=== PATIENT | female | born 1940 | race Caucasian/White ===

== ENCOUNTER → 2016-06-05 | Outpatient (CLI) | payer MEDICARE, MEDICAID | LOC: RAD 08:22 | PROVIDERS: ATTEND Internal Medicine | DX: C54.1 Malignant neoplasm of endometrium (principal); N13.30 Unspecified hydronephrosis | CPT/HCPCS: 71260; 74177; 82565 ==

== ENCOUNTER → 2016-07-04 | Outpatient (CLI) | payer MEDICARE, MEDICAID | LOC: RAD 09:06 | PROVIDERS: ATTEND Specialist | DX: C54.1 Malignant neoplasm of endometrium (principal); C50.419 Malignant neoplasm of upper-outer quadrant of unspecified female breast | CPT/HCPCS: 72157; A9577 ==

== ENCOUNTER → 2016-08-07 | Outpatient (CLI) | payer MEDICARE, MEDICAID | LOC: WI 09:43 | PROVIDERS: ATTEND Specialist | DX: C50.412 Malignant neoplasm of upper-outer quadrant of left female breast (principal) | CPT/HCPCS: G0279; G0204; 77062; 77066 ==

== ENCOUNTER → 2016-09-30 | Outpatient (CLI) | payer MEDICARE, MEDICAID | LOC: RAD 10:07 | PROVIDERS: ATTEND Specialist | DX: C54.1 Malignant neoplasm of endometrium (principal) | CPT/HCPCS: 74177; 82565 ==

== ENCOUNTER → 2016-10-16 | Outpatient (CLI) | payer MEDICARE, MEDICAID ==
--- NOTE | 2016-10-16 15:59 | RADIOLOGY REPORT (SQ) ---
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 PET-CT dated 01/20/2017. RADIONUCLIDE AND DOSE: 15.0 mCi F18 FDG The route of agent administration: Intravenous FASTING BLOOD SUGAR: 99 mg/dl CONTRAST TYPE AND DOSE: No CT contrast given. TECHNIQUE: Blood glucose level was verified. Above dose of FDG was injected intravenously. 2-D seg mented attenuation correction images were obtained from the base of the skull to the midthighs. Nonc ontrast CT images were obtained for attenuation correction and fusion with emission images. CT image s were performed without oral or intravenous contrast and are not sensitive for parenchymal lesions. A series of overlapping emission PET images were obtained. Images reviewed and manipulated at [facility] work station by the radiologist. Images stored on PACS. LIMITATIONS: None. FINDINGS: HEAD AND NECK: 5 mm nodule in the posterior inferior left parotid gland. Mean SUV value 2 .3. CHEST: Nodule at the right lung base adjacent to the diaphragm, seen on recent CT, has increased acti vity with mean SUV 4.5. No noticeable activity in the nodule in the left lung base. There is a mini mal nodule posterior to the left side of the upper sternum, possibly a peripheral lung nodule versus an intramammary lymph node. This measures 6 mm with mean SUV value 2.8. On the CT scan there are mu ltiple small lung nodules throughout both lungs, generally measuring 5 mm or less, which were not pre sent on the prior chest CT in May 2016. These do not demonstrate measurable activity, likely due to the small size. ABDOMEN AND PELVIS: There are multiple areas of abnormal activity in the liver. These areas are not clearly apparent on the noncontrast CT scan. These have mean SUV values ranging from 5.8 to 9.8. Se veral nodular lesions on the serosal surface of the bowel, particularly the right colon, with mean BURK V value 6.3. Mesenteric nodule adjacent to the ascending colon with mean SUV value 4.22. Nodule in the anterior lower abdomen, adjacent to the abdominal wall, with mean SUV value 7.55. Additional mes enteric nodules in the lower abdomen, the largest with mean SUV value 5.81. Conglomerate mass in the pelvis adjacent to the sigmoid colon, partially obscured by metallic artifact from the hip prosthesi s. Mean SUV value 6.68. 11 mm right inguinal lymph node with mean SUV value of 6.18. PROXIMAL LOWER EXTREMITIES: No areas of abnormal metabolic activity in the soft tissues of the lower extremities. ADDITIONAL CT FINDINGS: Again seen is left side hydronephrosis and hydroureter. OTHER: No other significant findings. IMPRESSION: 1. SMALL 5 MM NODULE IN THE POSTERIOR INFERIOR LEFT PAROTID GLAND WITH ELEVATED SUV VALUE. THIS COUL D REPRESENT A METASTATIC LYMPH NODE OR COULD BE DUE TO INFLAMMATORY PROCESS. 2. IN THE CHEST, THERE ARE NOW NUMEROUS SMALL, 5 MM OR LESS, PULMONARY NODULES THROUGHOUT BOTH LUNGS WHICH HAVE DEVELOPED SINCE MAY 2016. NO MEASURABLE ACTIVITY, DUE TO THE SMALL SIZE, BUT MOST LIK GREGG DUE TO PULMONARY METASTASES. THE NODULE IN THE RIGHT LUNG BASE WITH INCREASED ACTIVITY CONSISTEN T WITH METASTASIS. NODULE IN THE ANTERIOR CHEST WITH INCREASED ACTIVITY CONSISTENT WITH EITHER PULMO NARY LESION OR INTRAMAMMARY LYMPH NODE. 3. MULTIPLE AREAS OF ABNORMAL ACTIVITY IN THE LIVER CONSISTENT WITH METASTASES. 4. NUMEROUS AREAS OF ACTIVITY IN THE ABDOMEN, INCLUDING MESENTERIC NODULES AND NODULAR INVOLVEMENT OF THE SEROSAL SURFACE OF THE BOWEL, CONSISTENT WITH ABDOMINAL SPREAD OF TUMOR. 5. HYPERMETABOLIC RIGHT INGUINAL LYMPH NODE CONCERNING FOR METASTASIS. 6. PREVIOUSLY SEEN INCREASED ACTIVITY THROUGHOUT THE SKELETON HAS RESOLVED. PROBABLY REBOUND MARROW METABOLISM RELATED TO THERAPY. TECHNICAL DOCUMENTATION: JOB ID: [id number]- All Rights Reserved
== END ==
LOC: RAD 11:54
PROVIDERS: ATTEND Specialist
DX: C54.1 Malignant neoplasm of endometrium (principal); R91.1 Solitary pulmonary nodule; Z85.3 Personal history of malignant neoplasm of breast
CPT/HCPCS: 78815; A9552

== ENCOUNTER 2016-12-19 10:25 | Day surgery (SDC) | payer MEDICARE, MEDICAID ==
[~2016-12-19 10:25] MED LIST: KETOROLAC TROMETHAMINE 0.45% 4 DROP/0.4 ML DROPERETTE OS PRN
[2016-12-19] MEDS: TROPICAMIDE 1% OPH SOLN 3 ML OS PRN ×3 (11:19→12:03)
[2016-12-19] MEDS: CYCLOPENTOLATE 0.2%/PHENYLEPHRINE 1% OPH SOLN 2 ML OS PRN ×3 (11:19→12:03)
[2016-12-19] MEDS: BESIFLOXACIN HCL 0.6% OPH SUSP 5 ML BOTTLE OS PRN ×2 (11:20→12:27)
[2016-12-19] MEDS: TETRACAINE HCL 0.5% OPH SOLN 2 ML OS PRN ×4 (11:21→12:08)
[2016-12-19] MEDS ORDERED: CHONDR SU A NA/HYALUR INTRAOC KIT (SURGICARE) ONE (11:24)
[2016-12-19] MEDS ORDERED: EPINEPHRINE INJ/PF 1 MG/1 ML AMPULE ONE (11:24)
[2016-12-19] MEDS ORDERED: TRYPAN BLUE 0.06 % OPH SOLN 0.5 ML DISP.SYRIN ONE (11:24)
[2016-12-19] MEDS ORDERED: LIDOCAINE 1% INJ-PF (10 MG/ML) 30 ML SDV ONE (11:24)
[2016-12-19] MEDS ORDERED: MIDAZOLAM 2 MG/2 ML INJ ONE (11:47)
--- NOTE | 2016-12-20 07:44 | [facility] OPERATIVE REPORT E ---
[facility] Operative Report NAME: MAXWELL MARIO AGE: 76Y DATE OF SURGERY: 12/19/2016 ROOM: PREOPERATIVE DIAGNOSIS: CATARACT, LEFT EYE. POSTOPERATIVE DIAGNOSIS: CATARACT, LEFT EYE. OPERATION: Cataract extraction with intraocular lens implant of the left eye. SURGEON: REMINGTON CEJA M.D. ANESTHESIA: Topical. PROCEDURE: After obtaining appropriate consent, the patient's left eye was prepped and draped in sterile fashion as well as the surgeon in a sterile manner and cataract surgery was started. First a paracentesis blade was used to make a small side-port incision. Viscoelastic was used to inflate the anterior chamber. Next a 2.4 mm incision was made with the paracentesis blade. A continuous capsulorrhexis incision was made using a cystotome and Utrata forceps. Following this hydrodissection was carried out to make the lens fully loose and mobile and it was rotated 90 degrees. Following this, a iuxwpm-imf-jbypzri technique was used to phacoemulsify the lens with a CDE of 6.58. The remaining cortex was removed with irrigation/aspiration. Provisc was instilled into the capsular bag to inflate the bag. A SN60WF, 19.0 diopter lens was placed. The remaining viscoelastic material was removed with irrigation/aspiration. Following this, a 10-0 nylon suture was used to close the incision and it was found to be watertight. Vigamox was instilled in the eye and a protective shield was placed over the eye. The patient returned to the postoperative recovery in stable condition. DICTATING PHYSICIAN: REMINGTON CEJA M.D. [id number] PHY#: [id number] ID: [id number] JOB#: [id number] ACCT: [id number] cc:REMINGTON CEJA M.D. >
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
== END 2016-12-19 13:22 | disposition home or self-care (01) ==
LOC: SC 10:25
PROVIDERS: ATTEND Internal Medicine
PROC: 08RK3JZ Replacement of Left Lens with Synthetic Substitute, Percutaneous Approach (ICD-10-PCS; principal; 2016-12-19 12:30)
DX: H25.89 Other age-related cataract (principal); Z85.42 Personal history of malignant neoplasm of other parts of uterus; I25.2 Old myocardial infarction; I10 Essential (primary) hypertension; K21.9 Gastro-esophageal reflux disease without esophagitis
CPT/HCPCS: 66984; V2632; J2250; J3490 ×2; A9270; J0171; 142

== ENCOUNTER → 2017-01-29 | Outpatient (CLI) | payer MEDICARE, MEDICAID ==
--- NOTE | 2017-01-29 10:25 | RADIOLOGY REPORT (SQ) ---
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 Images reviewed with lung, soft tissue and bone windows. Reconstructed coronal a nd sagittal MPR images reviewed. All images stored on PACS. CT scan of the abdomen and pelvis performed with intravenous and with oral contrastusing helical scan todd technique with dynamic intravenous contrast injection. Images reviewed with lung, soft tissue a nd bone windows. Reconstructed coronal and sagittal MPR images reviewed. Delayed images for evaluat ion of the urinary system also acquired and evaluated. All images stored on PACS. All CT scanners at this facility use dose modulation, iterative reconstruction, and/or weight based d osing when appropriate to reduce radiation dose to as low as reasonably achievable (ALARA). [facility]: Dose Right [facility]: CareDose [facility]: Dose Right [facility]: Teradose 4D [facility]: [employer] RADIATION DOSE: Up-to-date CT equipment and radiation dose reduction techniques were employed. CTDIv ol: 4.4 - 6.3 mGy. DLP: 785 mGy-cm. . LIMITATIONS: None. FINDINGS: CHEST: LUNGS AND PLEURA: There are multiple too numerous to count lung nodules now present bilaterally. The largest of these is 12 x 11 mm in diameter just above the left hemidiaphragm. On prior PET-CT this exhibited activity SUV 4.5. No pleural effusions. No pneumothorax. Old calcified granuloma anterior aspect right upper lobe. HILAR AND MEDIASTINAL STRUCTURES: No identified masses or abnormal nodes. HEART AND VASCULAR STRUCTURES: No aneurysm or dissection. No central pulmonary emboli. No pericardi al effusion. Calcified aortic valve. Post sternotomy and CABG. HARDWARE: Left-sided permanent central line tip superior vena cava THYROID AND OTHER SOFT TISSUES: 10 mm cyst versus nodule left lobe thyroid. No axillary or mediastin al adenopathy BONES: No significant finding. OTHER: No other significant finding. ABDOMEN AND PELVIS: LIVER: Too numerous to cons liver masses, the larger than left lobe liver near the falciform ligament is 2.6 x 2.3 cm in size on axial image 24. The largest in the right lobe liver is posterior, 2.5 x 2.4 cm in size on axial image 23. These have increased in size and number compared to PET-CT 10/17/19 17 SPLEEN: Normal size. No focal lesions. PANCREAS: No masses. No significant calcifications. No adjacent inflammation or peripancreatic fluid collections. Pancreatic duct not dilated. GALLBLADDER: No identified stones by CT criteria. No inflammatory changes to suggest cholecystitis. ADRENAL GLANDS: No significant masses or asymmetry. RIGHT KIDNEY AND URETER: No solid masses. No significant calcification. No hydronephrosis or hydroure ter. LEFT KIDNEY AND URETER: Left double-J stent in place. Cortical thinning is present with delayed excr etion of contrast into the collecting system. AORTA AND VESSELS: Heavy atherosclerotic aortic calcification without aneurysm RETROPERITONEUM: No retroperitoneal adenopathy, hemorrhage or masses. BOWEL AND PERITONEAL CAVITY: No masses or inflammatory changes. No free fluid or peritoneal masses. Patient drank oral contrast. No evidence of bowel obstruction. There are few colonic diverticuli wi thout CT signs of acute diverticulitis. APPENDIX: Surgically absent ABDOMINAL WALL: No masses. No hernias. PELVIS: There is streak artifact and beam hardening artifact in the pelvis from bilateral total hip r eplacements. In the ill-defined soft tissue mass present in the pelvis with an air-fluid level, CTA between the superior edge of the vaginal cough and undersurface of the sigmoid colon. Necrotic recur rent tumor is suspected. This is best shown on axial images 60-68, coronal images 48-56, and sagitta l images 37 through 45. BONES: Old L1 compression deformity unchanged from prior studies. IMPRESSION: Progression of disease in the chest Progression of disease in the liver Probable necrotic tumor mass in the deep pelvis between the vaginal cuff and undersurface of the sigm oid colon. TECHNICAL DOCUMENTATION: JOB ID: [id number] Quality ID # [id number]: Final reports with documentation of one or more dose reduction techniques (e.g., Au tomated exposure control, adjustment of the mA and/or kV according to patient size, use of iterative reconstruction technique) [address] [employer] [address] [employer]- All Rights Reserved
== END ==
LOC: RAD 08:14
PROVIDERS: ATTEND Internal Medicine
DX: C54.1 Malignant neoplasm of endometrium (principal); C50.419 Malignant neoplasm of upper-outer quadrant of unspecified female breast
CPT/HCPCS: 71260; 74177

== ENCOUNTER → 2017-02-11 | Outpatient (CLI) | payer MEDICARE, MEDICAID ==
--- NOTE | 2017-02-11 10:19 | RADIOLOGY REPORT (SQ) ---
EXAM DESCRIPTION: MRI HEAD COMBO COMPLETED DATE/TIME: 02/11/2017 9:54 am REASON FOR STUDY: MAL MARIANELA OF ENDOMETRIUM C54.1 MALIGNANT NEOPLASM OF ENDOMETRIUM COMPARISON: CT dated 08/30/2014. TECHNIQUE: Multiplanar imaging includes noncontrasted T1, T2, FLAIR, diffusion with ADC map and post gadolinium contrast T1 sequences. Images stored on PACS. CONTRAST TYPE AND DOSE: 15 mL Multihance. RENAL FUNCTION: GFR > 60. LIMITATIONS: None. FINDINGS: ANATOMY: No anomalies. Normal vascular flow voids. Pituitary fossa normal. CSF SPACES: Normal in size and contour. No hemorrhage. CEREBRUM: Sulci and gyri normal in size and contour. Normal white matter signal on FLAIR imaging. No evidence of hemorrhage, mass, or extraaxial fluid collection. No abnormal enhancement post contrast. POSTERIOR FOSSA: Faintly enhancing mass in the left cerebellar hemisphere measuring 1.7 x 2.5 cm. No significant white matter edema. No hemorrhage. Internal auditory canals, cerebellopontine angles, m astoids normal. DIFFUSION IMAGING: Negative for acute or subacute infarction. ORBITS: No masses. Globes normal. PARANASAL SINUSES: No fluid levels. Mucosa normal. OTHER: No other significant finding. IMPRESSION: FAINTLY ENHANCING MASS IN THE LEFT CEREBELLAR HEMISPHERE CONSISTENT WITH METASTASIS. NO SIGNIFICANT WHITE MATTER EDEMA. NO OTHER SIGNIFICANT FINDINGS. EVIDENCE OF ACUTE STROKE: NO. TECHNICAL DOCUMENTATION: JOB ID: [id number] [employer]- All Rights Reserved
== END ==
LOC: RAD 08:09
PROVIDERS: ATTEND Internal Medicine Hematology & Oncology
DX: C54.1 Malignant neoplasm of endometrium (principal)
CPT/HCPCS: 82565; 70553; A9577